=== PATIENT | female | born 1985 | race Two or more races ===

== ENCOUNTER → 2020-04-15 | Outpatient (CLI) | payer OTHER | END | disposition home or self-care (01) | LOC: STAR 11:01 | PROVIDERS: ATTEND Podiatrist Foot & Ankle Surgery | DX: Z01.818 Encounter for other preprocedural examination (principal); Z11.59 Encounter for screening for other viral diseases | CPT/HCPCS: 36415; 87635 ==

== ENCOUNTER 2020-04-19 07:35 | Day surgery (SDC) | payer OTHER ==
[~2020-04-19] VITALS: Ht 154.9 cm; Wt 53.0 kg
[2020-04-19 07:44] VITALS: BP 103/68
[2020-04-19] MEDS ORDERED: LACTATED RINGERS 1,000 ML IV SCH (07:46)
[2020-04-19] MEDS ORDERED: CHLORHEXIDINE 15 ML UDC MM STA (07:54)
[2020-04-19] MEDS ORDERED: NO MEDS (08:12)
[2020-04-19 08:50] LABS: HCG UR SG 1.021 (1.003-1.030)
[2020-04-19] MEDS ORDERED: FENTANYL PF 100 MCG/2ML IV PRN (09:00)
[2020-04-19] MEDS ORDERED: HALOPERIDOL 5 MG/ML IV PRN (09:00)
[2020-04-19] MEDS ORDERED: DIAZEPAM 5 MG/ML, 2ML IVPush PRN (09:00)
[2020-04-19] MEDS ORDERED: ACETAMINOPHEN 325 MG TABLET PO PRN (09:00)
[2020-04-19] MEDS ORDERED: LABETALOL 5MG/ML, 20ML IV PRN (09:00)
[2020-04-19] MEDS ORDERED: ONDANSETRON 2MG/ML, 2ML IVPush PRN (09:00)
[2020-04-19] MEDS ORDERED: LORazepam 2 MG/ML, 1ML IVPush PRN (09:00)
[2020-04-19] MEDS ORDERED: EPHEDRINE 50 MG/ML, 1ML IM PRN (09:00)
[2020-04-19] MEDS ORDERED: METOCLOPRAMIDE 5 MG/ML, 2ML IVPush PRN (09:00)
[2020-04-19] MEDS ORDERED: HYDROmorphone 1 MG/ML, 1ML INJ IVPush PRN (09:00)
[2020-04-19] MEDS ORDERED: OXYcodone 5 MG/5 ML ORAL.SOL UDC PO PRN (09:00)
[2020-04-19] MEDS ORDERED: METHOCARBAMOL 1,000 MG in DEXTROSE 5% 100 ML IV PRN (09:00)
[2020-04-19] MEDS ORDERED: EPHEDRINE 50 MG/ML, 1ML IVPush PRN (09:00)
[2020-04-19] MEDS ORDERED: HYDROcodone/APAP 7.5-325MG/15ML UDC PO PRN (09:00)
[2020-04-19] MEDS ORDERED: DIPHENHYDRAMINE 50 MG/ML, 1ML IVPush PRN (09:00)
[2020-04-19] MEDS ORDERED: MIDAZOLAM 1 MG/ML, 2ML IV PRN (09:00)
[2020-04-19] MEDS ORDERED: MEPERIDINE/PF 25MG/0.5ML IVPush PRN (09:00)
[2020-04-19] MEDS ORDERED: KETOROLAC 30 MG/1 ML IVPush PRN (09:00)
[2020-04-19] MEDS ORDERED: ALBUTEROL/IPRATROPIUM 2.5MG/0.5MG, 3 ML NPPB PRN (09:00)
[2020-04-19] MEDS ORDERED: DEXAMETHASONE 4 MG/ML, 1ML ONE (09:02)
[2020-04-19] MEDS ORDERED: PROPOFOL 10 MG/ML, 20ML ONE (09:02)
[2020-04-19] MEDS ORDERED: ROCURONIUM 10MG/ML,5ML ONE (09:02)
[2020-04-19] MEDS ORDERED: GLYCOPYRROLATE 0.2MG/1ML, 5ML ONE (09:02)
[2020-04-19] MEDS ORDERED: FENTANYL PF 100 MCG/2ML ONE (09:02)
[2020-04-19] MEDS ORDERED: LIDOCAINE-MPF 2% ,5ML ONE (09:02)
[2020-04-19] MEDS ORDERED: MIDAZOLAM 1 MG/ML, 2ML ONE (09:02)
[2020-04-19] MEDS ORDERED: CEFAZOLIN 1,000 MG ONE (09:43)
[2020-04-19] MEDS ORDERED: DEXAMETHASONE 4 MG/ML, 1ML IM ONE (10:24)
== END 2020-04-19 12:20 | disposition home or self-care (01) ==
LOC: OUT 07:35
PROVIDERS: ATTEND Podiatrist Foot & Ankle Surgery
DX: M20.41 Other hammer toe(s) (acquired), right foot (principal); M89.8X7 Other specified disorders of bone, ankle and foot
CPT/HCPCS: 28285; 81025; J0690; J1100; J2250; J2704; J3010; J7120